=== PATIENT | female | born 1975 | race Caucasian/White ===

== ENCOUNTER → 2019-12-24 | Outpatient (CLI) | payer BC ==
--- NOTE | 2019-12-24 11:15 | CT ---
EXAMINATION TYPE: CT abdomen wo/w con DATE OF EXAM: 12/24/2019 COMPARISON: None HISTORY: Left side renal mass found on US at [facility]. CT DLP: 783.6 mGycm CONTRAST: CT scan of the abdomen is performed with Oral Contrast and without and with IV Contrast, patient inje cted with 100 mL of Isovue 300. FINDINGS: LUNG BASES-: No visible nodule. No infiltrate. LIVER/GB: No calcified gallstones. No space occupying hepatic lesion. Biliary tree is of normal ca liber. PANCREAS: No inflammation. No distinct mass. SPLEEN: No splenic enlargement. No lesion seen. ADRENALS: No nodule. No thickening. KIDNEYS/BLADDER: Simple cyst upper pole left kidney measuring 2.5 x 1.9 cm. No solid renal lesions ar e detected. Right renal cortical calcification measuring 9.3 mm with adjacent area of focal cortical thinning. No evidence for hydronephrosis. No additional masses seen. No solid mass identified. BOWEL: Normal appendix. Normal bowel caliber. No inflammation. LYMPH NODES: No greater than 1cm abdominal or pelvic lymph nodes are appreciated. AORTA: No significant abnormality. OSSEOUS STRUCTURES: No significant abnormality is seen. OTHER: No significant additional abnormality is seen. IMPRESSION: 1. Simple cyst upper pole left kidney without evidence of solid lesion.
== END | disposition home or self-care (01) ==
LOC: RADCTMAIN 10:08
PROVIDERS: ATTEND Urology
DX: N28.1 Cyst of kidney, acquired (principal); D41.01 Neoplasm of uncertain behavior of right kidney
CPT/HCPCS: 74170; Q9967